=== PATIENT | male | born 1975 | race Caucasian/White ===

== ENCOUNTER 2017-10-12 17:51 | Emergency (ER) | payer BC ==
--- NOTE | 2017-10-12 20:51 | UC ---
UC General HPI - HPI Summary HPI Summary: pt c/o fever, chills, sore throat and bodyaches. he thinks it may be strep. - History of Current Complaint Stated Complaint: SORE THROAT WITH SPOTS Time Seen by Provider: 10/12/17 20:40 Hx Obtained From: Patient Onset/Duration: Gradual Onset, Lasting Days - 3 Timing: Constant Aggravating: nothing Alleviating: nothing Associated Signs & Symptoms: Positive: Fever - Allergy/Home Medications Allergies/Adverse Reactions: Allergies Allergy/AdvReac Type Severity Reaction Status Date / Time No Known Allergies Allergy Verified 10/12/17 20:45 PMH/Surg Hx/FS Hx/Imm Hx - Additional Past Medical History Additional PMH: Gout - Surgical History Surgical History: Yes Surgery Procedure, Year, and Place: Back surgery, left arm surgery - Family History Known Family History: Positive: None - Social History Occupation: Employed Full-time Lives: With Family Alcohol Use: Occasionally Substance Use Type: None Smoking Status (MU): Never Smoked Tobacco - Immunization History Vaccination Up to Date: Yes Review of Systems Constitutional: Fever, Chills Skin: Negative Eyes: Negative ENT: Sore Throat Respiratory: Negative Cardiovascular: Negative Gastrointestinal: Negative Genitourinary: Negative Motor: Negative Neurovascular: Negative Musculoskeletal: Myalgia Neurological: Negative Psychological: Negative Is Patient Immunocompromised?: No All Other Systems Reviewed And Are Negative: Yes Physical Exam Triage Information Reviewed: Yes Appearance: Well-Appearing Vital Signs Reviewed: Yes Eyes: Positive: Conjunctiva Inflamed ENT: Positive: Pharyngeal erythema, TMs normal, Uvula midline - with mild to moderate swelling but no airway issues. Negative: Nasal congestion, Nasal drainage, Tonsillar exudate, Trismus, Muffled voice, Hoarse voice Neck: Positive: Supple, Enlarged Nodes @ - peritonsilar nodes Respiratory: Positive: Lungs clear, Normal breath sounds, No respiratory distress Cardiovascular: Positive: RRR, No Murmur Abdomen Description: Positive: Nontender, No Organomegaly, Soft Bowel Sounds: Positive: Present Neurological: Positive: Alert Psychological: Positive: Age Appropriate Behavior Skin Exam: Normal Diagnostics - Laboratory ABG Interpretation: rapid strep=neg Course/Dx - Course Course Of Treatment: declined pain medication. exam c/w pharyngitis/uvulitis thus i am covering for presumptive secondary bacterial infection. - Differential Dx - Multi-Symptom Provider Diagnoses: Uvulitis. pharyngitis Discharge - Discharge Plan Condition: Stable Disposition: HOME Prescriptions: Amoxicillin/Clavulanate TAB* [Augmentin TAB 875*] 875 mg PO BID #20 tab Patient Education Materials: Uvulitis (ED), Pharyngitis (ED) Referrals: Scott De La Torre MD [Primary Care Provider] - 5 Days
[2017-10-12 20:52] VITALS: BP 117/82
[2017-10-12] MEDS ORDERED: Amoxicillin/Clavulanate TAB* 875 MG PO ONE (21:10)
[2017-10-12] MEDS ORDERED: Dexamethasone IV* 4 MG/ML 1 ML (4 MG) ONE (21:10)
== END 2017-10-12 21:28 | disposition home or self-care (01) ==
LOC: UCCORT 17:51
DX: K12.2 Cellulitis and abscess of mouth (principal); J02.9 Acute pharyngitis, unspecified
CPT/HCPCS: 87651; 99212; A9270-GY; G0463; J1100

== ENCOUNTER 2018-01-05 08:21 | Emergency (ER) | payer BC ==
[2018-01-05 08:35] VITALS: BP 126/77
--- NOTE | 2018-01-05 09:14 | UC ---
Upper Extremity HPI - HPI Summary HPI Summary: Right hand pain diffusely and left hand finger swelling and tenderness. This is similar to prior presentations. he believes he has gout as it runs in the family and he has had high uric acid but he does not have health insurance and has not had a specialist or any further workup for rheumatoid arthritis. - History of Current Complaint Chief Complaint: UCUpperExtremity Stated Complaint: RIGHT HAND SWELLING Time Seen by Provider: 01/05/18 08:51 Hx Obtained From: Patient Onset/Duration: Gradual Onset, Lasting Days Severity Initially: Moderate Severity Currently: Moderate Pain Intensity: 6 Location Of Pain: Is Discrete @ - ella hands. Character: Dull, Aching, Stiffness Aggravating Factor(s): Movement Alleviating Factor(s): Nothing - In the past prednisone helps. Allopurinol daily does not help. Associated Signs And Symptoms: Positive: Swelling. Negative: Fever, Weakness, Numbness/Tingling Related History: Similar Episode/Dx As - prior gout. - Allergies/Home Medications Allergies/Adverse Reactions: Allergies Allergy/AdvReac Type Severity Reaction Status Date / Time No Known Allergies Allergy Verified 01/05/18 08:32 PMH/Surg Hx/FS Hx/Imm Hx Previously Healthy: No - gout. - Surgical History Surgical History: Yes Surgery Procedure, Year, and Place: Back surgery, left arm surgery - Family History Known Family History: Positive: Other - gout. - Social History Alcohol Use: Occasionally Substance Use Type: None Smoking Status (MU): Never Smoked Tobacco - Immunization History Vaccination Up to Date: Yes Review of Systems Motor: Decreased ROM Musculoskeletal: Arthralgia, Edema All Other Systems Reviewed And Are Negative: Yes Physical Exam Triage Information Reviewed: Yes Appearance: Pain Distress - some obvious discomfort with hand movements. Vital Signs: Initial Vital Signs Temp 98.1 F 01/05/18 08:29 Pulse 63 01/05/18 08:29 Resp 16 01/05/18 08:29 BP 126/77 01/05/18 08:29 Pulse Ox 100 01/05/18 08:29 Vital Signs Reviewed: Yes Eyes: Positive: Conjunctiva Clear. Negative: Conjunctiva Inflamed ENT: Positive: Normal ENT inspection Neck: Positive: Supple, Nontender, No Lymphadenopathy Respiratory: Positive: Normal breath sounds, No respiratory distress, No accessory muscle use. Negative: Respiratory distress, Decreased breath sounds, Accessory muscle use, Crackles, Rhonchi, Stridor Cardiovascular: Positive: No Murmur Abdomen Description: Positive: No Organomegaly, Soft. Negative: Distended, Guarding Musculoskeletal: Positive: ROM Limited @, Edema @ - ella hands. Neurological: Positive: Alert, Muscle Tone Normal. Negative: Fatigued Psychological: Positive: Age Appropriate Behavior Skin: Negative: rashes - there is mildpinkness of the ella hands worse on the right. There is no redness or induration. Upper Extremity Course/Dx - Course Course Of Treatment: we discussed need for further workup and possible more aggressive treatment of gout to prevent detention damage to joints. - Differential Dx/Diagnosis Provider Diagnoses: hand swelling. inflammatory joint disease. possible acute tophaciuos gout. Discharge - Sign-Out/Discharge Documenting (check all that apply): Discharge/Admit/Transfer - Discharge Plan Condition: Good Disposition: HOME Prescriptions: Colchicine* [Colcrys*] 0.6 mg PO BID #2 tab predniSONE TAB* [Deltasone TAB*] 20 mg PO DAILY #20 tab Patient Education Materials: Gout (ED) Referrals: Scott De La Torre MD [Primary Care Provider] - - Billing Disposition and Condition Condition: GOOD Disposition: HOME
== END 2018-01-05 09:14 | disposition home or self-care (01) ==
LOC: UCCORT 08:21
DX: M79.89 Other specified soft tissue disorders (principal); M19.049 Primary osteoarthritis, unspecified hand; Z82.69 Family history of other diseases of the musculoskeletal system and connective tissue
CPT/HCPCS: 99212; G0463